=== PATIENT | male | born 1965 | race Caucasian/White ===

== ENCOUNTER 2021-01-23 17:07 | Emergency (ER) | payer OTHER, SELFPAY ==
--- NOTE | ~2021-01-23 | XR_ITS ---
EXAMINATION: XR hand RT min 3V EXAM DATE: 01/23/2021 17:54 INDICATION: Fall yesterday, pain and swelling entire rt hand . Initial encounter. TECHNIQUE: Right hand frontal, lateral and oblique projections obtained and reviewed. There is no pr ior study for comparison. FINDINGS: Right metacarpal bones are unremarkable. There are no acute fractures or dislocations iden tified. There is no subcutaneous gas. There may be swelling over the entire hand. There are no rad iopaque foreign bodies. IMPRESSION: 1. Right hand exam without acute osseous findings. Reviewed, dictated and finalized at location A.
[2021-01-23 17:18] VITALS: BP 143/84; PULSE 87; RESP 18; TEMP 37.2; O2SAT 99
--- NOTE | 2021-01-23 18:25 | ED.UPPEXIN ---
HPI - Extremity Injury (Upper) General Chief Complaint: Extremity Injury, Upper Stated Complaint: Swollen Right Hand Time Seen by Provider: 01/23/21 18:26 Source: patient, family and RN notes reviewed Mode of arrival: ambulatory Limitations: no limitations History of Present Illness HPI narrative: 55 year old male who presents to [facility] care with complaints of injury to his right hand which occurred early Saturday morning. Patient states that he fell onto his hand when he slipped at home with pain and swelling present mainly to the dorsal area of his right hand with superficial healing abrasions X2 noted. Patient states that his hand is throbbing and he has been using ice and taking Advil with minimal pain decrease noted.Patient states that most pain is around his 4th knuckle with increase pain with movement of his digits of right hand, states some numbness to his right 4th finger, strong radial pulse with hand warm and pink with brisk capillary refill to his nail beds. MD complaint: injury to: right and hand Onset (ago): day(s) (EARLY Saturday) Other Extremity Injury: Right: hand Other injuries: none Handedness: right Place: home Severity: severe Severity scale (1-10): 7 Context: fall Treatments prior to arrival: cold therapy Related Data Home Medications Medication Instructions Recorded Confirmed amlodipine 2.5 mg PO DAILY 01/23/21 01/23/21 cyclobenzaprine mg 01/23/21 nebivolol [Bystolic] 5 mg PO DAILY 01/23/21 01/23/21 ropinirole mg 01/23/21 trazodone 100 mg PO HS 01/23/21 01/23/21 Allergies Allergy/AdvReac Type Severity Reaction Status Date / Time blueberry Allergy Unknown Verified 01/23/21 17:46 Review of Systems Review of Systems: Narrative: CONSTITUTIONAL: Denies fever, chills, or sweats. EYES: Denies visual changes, redness, or discharge. ENT: Denies rhinorrhea, congestion, sore throat, or otalgia. CARDIOVASCULAR: Denies chest pain, palpitations, or edema. RESPIRATORY: Denies cough or dyspnea. GASTROINTESTINAL: Denies abdominal pain, nausea, vomiting, or diarrhea. GENITOURINARY: Denies dysuria or hematuria. SKIN: Denies rash or itching. MUSCULOSKELETAL: Denies back pain,positive pain to his right dorsal hand and his right 4th finger, or myalgia. NEUROLOGIC: Denies headache, numbness, or weakness. PSYCHIATRIC: History of anxiety or depression. All systems reviewed & are unremarkable except as noted in HPI and below PMFSH Past Medical History Medical History (Updated 01/28/21 @ 17:41 by Priti Rodríguez NP) Anxiety with depression Hypertension KAYLYNN (obstructive sleep apnea) Prostate cancer Restless leg syndrome Surgical History Surgical History (Updated 01/28/21 @ 17:34 by Priti Rodríguez NP) History of facial surgery reconstructive surgery left side of face Hx of cholecystectomy Family History Family History (Updated 01/28/21 @ 17:31 by Priti Rodríguez NP) Other No significant family history Social History Social History (Updated 01/28/21 @ 17:30 by Priti Rodríguez NP) Smoking status: Unknown if ever smoked Alcohol intake: current Alcohol use details: social Substance use: never Living arrangements: with family Gender identity (if verbalized by the patient): Male Comments At time of signature, agree with nursing past medical, surgical, social and family history. There is no relevant family history pertinent to the presenting complaint Exam Narrative: Exam Narrative: GENERAL: Well-appearing, well-nourished, and in no acute distress. HEAD: Normocephalic, atraumatic. EYES: PERRLA and EOMI. ENT: Nares clear, no rhinorrhea or epistaxis. Mucous membranes moist. NECK: Supple. no lymphadenopathy CHEST: Clear to auscultation. No respiratory distress. HEART: Regular rate and rhythm. No murmur heard. Normal peripheral pulses. ABDOMEN: Soft, nontender, nondistended, normal active bowel sounds. EXTREMITIES: Normal range of motion. edema to dorsal aspect of his ri
== END 2021-01-23 19:03 | disposition home or self-care (01) ==
PROVIDERS: Emergency Provider Registered Nurse; PCP Internal Medicine
DX: S60.221A Contusion of right hand, initial encounter (principal); S60.511A Abrasion of right hand, initial encounter; W01.0XXA Fall on same level from slipping, tripping and stumbling without subsequent striking against object, initial encounter; I10 Essential (primary) hypertension; G47.33 Obstructive sleep apnea (adult) (pediatric); G25.81 Restless legs syndrome; F41.8 Other specified anxiety disorders
CPT/HCPCS: 73130; 99213; G0463